=== PATIENT | female | born 1995 | race African-American/Black ===

== ENCOUNTER 2017-07-14 01:15 | Emergency (ER) | payer OTHER ==
[~2017-07-14] VITALS: Ht 165.1 cm; Wt 54.0 kg
[2017-07-14] MEDS ORDERED: OSELB75 PO (01:30)
== END 2017-07-14 02:11 | disposition home or self-care (01) ==
LOC: ER 01:15
DX: J11.1 Influenza due to unidentified influenza virus with other respiratory manifestations (principal); J45.909 Unspecified asthma, uncomplicated

== ENCOUNTER 2019-01-26 06:35 | Emergency (ER) | payer OTHER ==
[~2019-01-26] VITALS: Ht 165.1 cm; Wt 52.6 kg
[~2019-01-26 06:35] MED LIST: OSELB75 PO
[2019-01-26 06:37] VITALS: BP 124/75
[2019-01-26 06:56] LABS: URINE BILIRUBIN NEGATIVE (Negative); URINE BLOOD 3+ (Negative); URINE COLOR YELLOW; URINE GLUCOSE-RANDOM* NEGATIVE (Negative); URINE KETONES NEGATIVE (Negative); URINE NITRITE-REFLEX NEGATIVE (Negative); URINE PROTEIN (DIPSTICK) TRACE (Negative); URINE SPECIFIC GRAVITY 1.015 (1.005-1.035); URINE UROBILINOGEN 0.2 E.U./dl (0.2-1.0)
[2019-01-26 06:58] LABS: URINE LEUKOCYTES-REFLEX 1+ (Negative)
[2019-01-26 06:59] LABS: URINE CLARITY HAZY
[2019-01-26 07:30] LABS: ABSOLUTE NEUTROPHILS 2.3 thou/uL (1.4-8.2); BASOPHILS 0.9 % (0.0-2.0); EOSINOPHILS 1.2 % (0.0-3.0); HEMATOCRIT 43.4 % (37.0-47.0); HEMOGLOBIN 14.5 gm/dL (12.0-15.0); MCH 31.6 pg (26.0-34.0); MCHC 33.5 g/dL (28.0-37.0); MCV 94.3 fL (80.0-100.0); MONOCYTES 7.6 % (1.0-8.0); PLATELET COUNT 252 thou/uL (150-400); POLYS 54.3 % (36.0-66.0); RDW 12.3 % (10.5-14.5); WBC 4.2 thou/uL (4.0-11.0)
[2019-01-26 08:36] LABS: BACTERIA-REFLEX 1-9 Few /HPF (None Seen); CASTS None Seen /LPF (None Seen); CRYSTALS None Seen /LPF (None Seen); SQUAMOUS 0-3 Few /LPF (0-3); URINE RBC 3-10 Few /HPF (0-2); URINE WBC-REFLEX 6-15 Few /HPF (0-5)
== END 2019-01-26 08:04 | disposition left against medical advice (07) ==
LOC: ER 06:35
PROVIDERS: Emergency Medicine
DX: O26.891 Other specified pregnancy related conditions, first trimester (principal); R30.0 Dysuria; J45.909 Unspecified asthma, uncomplicated

== ENCOUNTER 2019-03-05 05:40 | Emergency (ER) | payer OTHER ==
[~2019-03-05] VITALS: Ht 165.1 cm; Wt 52.2 kg
[2019-03-05 06:51] LABS: ABSOLUTE NEUTROPHILS 2.6 thou/uL (1.4-8.2); BASOPHILS 1.5 % (0.0-2.0); EOSINOPHILS 3.8 % (0.0-3.0); HEMATOCRIT 35.9 % (37.0-47.0); HEMOGLOBIN 11.8 gm/dL (12.0-15.0); LYMPHOCYTES 37.5 % (24.0-44.0); MCH 29.8 pg (26.0-34.0); MCHC 32.8 g/dL (28.0-37.0); MCV 90.7 fL (80.0-100.0); MONOCYTES 9.7 % (1.0-8.0); PLATELET COUNT 336 thou/uL (150-400); POLYS 47.5 % (36.0-66.0); RBC 3.96 mil/uL (4.20-5.00); RDW 12.5 % (10.5-14.5); WBC 5.5 thou/uL (4.0-11.0)
[2019-03-05 07:03] LABS: ANION GAP 10 mmol/L (7-16); BUN 12 mg/dL (7-18); CALCIUM 9.4 mg/dL (8.5-10.1); CHLORIDE 101 mmol/L (98-107); CO2 28 mmol/L (21-32); CREATININE 0.7 mg/dL (0.6-1.0); GLUCOSE 105 mg/dL (74-106); SODIUM 139 mmol/L (136-145)
[2019-03-05 07:09] LABS: ALBUMIN 4.3 g/dL (3.4-5.0); DIRECT BILIRUBIN < 0.1 mg/dL (<0.1-0.3); LIPASE 71 U/L (73-393); SGOT 15 U/L (15-37); SGPT 9 U/L (30-65); TOTAL BILIRUBIN 0.3 mg/dL (<0.1-1.0); TOTAL PROTEIN 8.6 g/dL (6.4-8.2)
--- NOTE | 2019-03-05 08:13 | EKG ---
[place] [address] [facility] [place] [address] ELECTROCARDIOGRAM REPORT Name: BERTRAND NEELY Room #: [facility] [id number] Admission: 03/05/19 Attend Phys: Discharge: Date of : [birth year] Report #: [id number] THIS REPORT FOR: //name// [facility] ED Test Date: 2019-03-05 Test Time: 06:22:33 Pat Name: BERTRAND NEELY Department: Room: Gender: F Jacket Changer: JEREMY : 1995 Requested By: Pro Shannon Order Number: [id number] MD: Phani Rhodes Measurements Intervals [place] Rate: 79 P: 66 ND: 144 QRS: 28 QRSD: 78 T: -14 QT: 404 QTc: 464 Interpretive Statements Sinus arrhythmia Nonspecific T wave abnormality No previous ECG available for comparison Electronically Signed On 03-05-2019 8:13:10 CDT by Phani Rhodes [email or web address] <ELECTRONICALLY SIGNED> By: Phani Rhodes MD, [facility] 03/05/19 0813 0622 0622 Phani Rhodes MD, FACC /EPI
[2019-03-05 08:33] VITALS: BP 108/74
== END 2019-03-05 08:37 | disposition home or self-care (01) ==
LOC: ER 05:40
PROVIDERS: Emergency Medicine
DX: M94.0 Chondrocostal junction syndrome [Tietze] (principal); J45.909 Unspecified asthma, uncomplicated